=== PATIENT | female | born 1995 | race Caucasian/White ===

== ENCOUNTER 2024-07-20 11:39 | Emergency (ER) | payer MEDICAID ==
[~2024-07-20] VITALS: Ht 162.6 cm; Wt 81.0 kg
[2024-07-20 11:45] VITALS: TEMP 98.7; O2SAT 100
[2024-07-20 12:54] LABS: BASOPHILS % 0.6 % (0.0-2.0); DIFFERENTIAL COMMENT 0; HEMATOCRIT. 29.9 % (36.0-48.0); HEMOGLOBIN. 9.1 g/dL (12.0-16.0); MEAN CORPUSCULAR HEMOGLOBIN 21.8 pg (28.0-32.0); MEAN CORPUSCULAR HGB CONC 30.6 g/dL (31.0-37.0); MEAN CORPUSCULAR VOLUME 71.2 fL (81.0-99.0); MEAN PLATELET VOLUME 8.8 fl (7.4-10.4); MONOCYTES % 6.4 % (2.0-8.0); PLATELET 281 x1000/uL (130-400); RED CELL DISTRIBUTION WIDTH 19.5 % (11.6-14.6); WHITE BLOOD COUNT 5.5 x1000/uL (4.5-11.0)
[2024-07-20 13:00] LABS: CARBON DIOXIDE 28 mEq/L (21-32); CHLORIDE 108 mEq/L (98-107); POTASSIUM 3.8 mEq/L (3.5-5.1); SODIUM 139 mEq/L (136-145)
[2024-07-20 13:01] LABS: CALCIUM 9.3 mg/dL (8.7-10.4)
[2024-07-20 13:06] LABS: CREATININE 0.7 mg/dL (0.6-1.0); GLUCOSE 88 mg/dL (70-105); UREA NITROGEN BLOOD 11 mg/dL (9-23)
[2024-07-20 13:07] LABS: ALANINE AMINOTRANSFERASE 8 IU/L (10-49); ALBUMIN 4.3 g/dL (3.2-4.8); ASPARTATE AMINOTRANSFERASE 18 IU/L (<34); HCG SCREEN NEGATIVE
[2024-07-20 13:08] LABS: BILIRUBIN DIRECT 0.2 mg/dL (<=3.0); BILIRUBIN TOTAL 0.6 mg/dL (0.1-1.0); PROTEIN TOTAL 7.3 g/dL (6.0-8.3)
[2024-07-20 13:24] LABS: PROTHROMBIN TIME 11.2 sec (9.6-11.0)
[2024-07-20] MEDS ORDERED: IRON1CAP3 MT (14:50)
[2024-07-20 15:18] VITALS: BP 126/86; PULSE 82; RESP 14; O2SAT 100
== END 2024-07-20 15:18 | disposition home or self-care (01) ==
LOC: ER 12:34
DX: D50.9 Iron deficiency anemia, unspecified (principal); R53.1 Weakness; J45.909 Unspecified asthma, uncomplicated; Z98.890 Other specified postprocedural states
CPT/HCPCS: 36415; 80048; 80076; 81025; 84703; 85025; 86850; 86900; 99283